=== PATIENT | female | born 1950 | race African-American/Black ===

== ENCOUNTER 2017-10-04 07:01 | Day surgery (SDC) | payer MEDICARE, MEDICAID ==
--- NOTE | 2017-10-01 19:45 | Pre-op HX & Phy Repo 2 SIG ---
DATE OF ADMISSION: 10/04/2017 DATE OF SURGERY: 10/04/2017 PREOPERATIVE DIAGNOSIS: Macular traction with proliferative diabetic retinopathy, right eye. 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 She was admitted for vitrectomy. PAST OCULAR HISTORY: Remarkable for cataract surgery in both eyes in the past. She has had two prior vitrectomies in the left eye with success. The right eye has developed progressive traction necessitating a vitrectomy on that side. MEDICAL HISTORY: Remarkable for diabetes, high blood pressure, arthritis, cerebral palsy, and a prior stroke. She has a history of glaucoma as well as diabetic retinopathy and prior cataracts. ALLERGIES: She has no allergies to medications. CURRENT MEDICATIONS: Include metformin, clopidogrel, captopril, atorvastatin, amlodipine, Victoza, and NovoLog. PHYSICAL EXAMINATION: Best vision at the time of admission was 20/100 +2 on the right eye and 20/200 in the left with pressures of 11 and 12. The anterior segment on the right showed posterior chamber lens reasonably well positioned. The left showed an anterior chamber lens with inferior iridotomy. Fundus examination of the right eye showed a significant preretinal fibrosis with elevation and significant edema in the macula. She was well lasered in the periphery. The left fundus showed diabetic maculopathy. There was diffuse edema and a mild area of preretinal fibrosis, but overall the macula itself was flat with central fovea attached. Extensive laser was seen in the periphery. General physical examination was completed by Dr. Tapia. ASSESSMENT: Proliferative diabetic retinopathy with progressive vitreomacular traction, centrally, right eye. PLAN: The plan is to perform a pars plana vitrectomy with release of the traction, endolaser and a possible gas-fluid exchange. The risks and benefits of surgery were gone over with the patient and her family including the potential for infection, retinal detachment, hemorrhage, and remote possibility of loss of the eye. The risk of anesthesia was discussed. The patient and family understand and consents to surgery, which will be performed on Wednesday. Curtis Fragoso M.D. DR: Rubi JOB#: [id number] CC:
[~2017-10-04] VITALS: Ht 162.6 cm; Wt 108.9 kg
[2017-10-04] VITALS (11 sets, daily range): BP systolic 101–148; BP diastolic 54–81
[~2017-10-04 07:01] MED LIST: AMLODIPINE BESY10 MG ORAL; ASPIR 8181 MG ORAL; ATORVASTATIN CA20 MG ORAL; CAPTOPRIL PO; PLAVIX75 MG ORAL; Pred Forte 1% Opth Susp 1ml RIGHT EYE SCH; RENA-VITE RX T1 EAC1 PO; TOUJEO SOL300 UNIT/1 SQ; [UNRECOGNIZED DRUG - OTHER] PO; [UNRECOGNIZED DRUG - OTHER] PO
--- NOTE | 2017-10-04 07:16 | Pre-Procedure Note/Attestation ---
Pre-Procedure Note/Attestation Complete Prior to Procedure Planned Procedure: right Procedure Narrative: PPV, membrane peel, endolaser, gas-fluid exchange Right eye. Indications for Procedure Pre-Operative Diagnosis: Progressive blurring Right eye Attestation I attest that I discussed the nature of the procedure; its benefits; risks and complications; and alternatives (and the risks and benefits of such alternatives ), prior to the procedure, with the patient (or the patient's legal marketing development representative). I attest that, if there was a reasonable possibility of needing a blood transfusion, the patient (or the patient's legal marketing development representative) was given the [facility] standardized written summary, pursuant to the [place] Blood Safety Act ([place] Health and Safety Code # 1645, as amended). I attest that I re-evaluated the patient just prior to the surgery and that there has been no change in the patient's H&P, except as documented below: ADELIA CRISTOBAL Oct 04, 2017 07:16
[2017-10-04] MEDS: Cyclopentolate 1% Opth Sol 2ml RIGHT EYE SCH ×3 (07:39→08:01)
[2017-10-04] MEDS: Flurbiprofen 0.03% Opth Sol 2.5ml RIGHT EYE SCH ×3 (07:39→08:01)
[2017-10-04] MEDS: Phenylephrine 2.5% Op 2ml Soln RIGHT EYE SCH ×3 (07:39→08:01)
[2017-10-04] MEDS: Vigamox Opth Soln 3ml RIGHT EYE SCH ×3 (07:39→08:01)
[2017-10-04] MEDS ORDERED: EPINEPHrine 1mg/1ml Amp ONE (07:58)
[2017-10-04] MEDS ORDERED: Povidone-Iodine 5% opth solution ONE (07:58)
[2017-10-04] MEDS ORDERED: BSS 500ml btl ONE (07:58)
[2017-10-04] MEDS ORDERED: BSS 15ml BTL ONE (07:58)
[2017-10-04] MEDS ORDERED: Lidocaine 2% MPF 5ml Vial INJ ONE (08:17)
[2017-10-04] MEDS ORDERED: Propofol 200mg/20ml IV ONE (08:58)
[2017-10-04] MEDS ORDERED: NS Irrig 1000ml ONE (09:00)
[2017-10-04] MEDS ORDERED: LR 1000ml ONE (09:00)
[2017-10-04] MEDS ORDERED: Sterile Water Irrig 1000ml IRRIG ONE (09:00)
[2017-10-04] MEDS ORDERED: ePHEDrine 50mg/ml Inj ONE (09:00)
[2017-10-04] MEDS ORDERED: Midazolam 2mg/2ml Inj ONE (09:00)
[2017-10-04] MEDS ORDERED: Maxitrol Opth Oint 3.5gm ONE (09:08)
[2017-10-04] MEDS ORDERED: Dexamethasone 4mg/ml vial ONE (09:08)
[2017-10-04] MEDS ORDERED: Pred Forte 1% Opth Susp 1ml ONE (09:08)
[2017-10-04] MEDS ORDERED: Tetracaine 0.5% Opth 4ml Soln ONE (09:09)
[2017-10-04] MEDS ORDERED: LR 1000ml 1,000 ML IVLG SCH (09:33)
--- NOTE | 2017-10-04 09:38 | Anethesia Preoperative Eval ---
Anesthesia Pre-op PMH/ROS General Date of Evaluation: Oct 04, 2017 Time of Evaluation: 08:55 Anesthesiologist: Elton ASA Score: ASA 3 Mallampati Score Class I : Soft palate, uvula, fauces, pillars visible Class II: Soft palate, uvula, fauces visible Class III: Soft palate, base of uvula visible Class IV: Only hard plate visible Mallampati Classification: Class III Surgeon: Richmond Diagnosis: Diabetic retinopathy right eye Surgical Procedure: Vitrectomy, membrane peel Family History: no anesthesia problems Allergies: Coded Allergies: CORN (Verified Allergy, Severe, 10/01/17) DIARRHEA Uncoded Allergies: BEANS (Allergy, Severe, 10/01/17) DIARRHEA Medications: see eMAR Past Medical History Cardiovascular: Reports: HTN; Denies: CAD, LA, valve dz, arrhythmia, other Pulmonary: Denies: asthma, COPD, ZAKIA, other Gastrointestinal/Genitourinary: Denies: GERD, CRI, ESRD, other Neurologic/Psychiatric: Reports: CVA, other - Cerebral palsy Endocrine: Reports: DM; Denies: hypothyroidism, steroids, other HEENT: Denies: cataract (L), cataract (R), glaucoma, [place] (L), [place] (R), other Hematology/Immune: Denies: anemia, DVT, bleeding disorder, other Other: obesity PMH Narrative: HTN, DM, CVA with right sided residual, Cerebral Palsy Anesthesia Pre-op Phys. Exam Physician Exam Last Vital Signs Date Time Temp Pulse Resp B/P (MAP) Pulse Ox O2 Delivery O2 Flow Rate FiO2 10/04/17 07:45 Room Air 10/04/17 07:42 97.5 79 18 136/69 (91) 98 97.5 Constitutional: NAD Neurologic: CN 2-12 intact, other - Patient with limited communication ability Cardiovascular: RRR, no M/R/G Respiratory: CTA Gastrointestinal: S/NT/ND Airway Exam Mallampati Score: Class III MO: full ROM: full Teeth: missing Anesthesia Pre-op A/P Labs WNL Studies Pre-op Studies: EKG - SR Risk Assessment & Plan Assessment: Class 3 patient for vitrectomy right eye Plan: GA, LMA Status Change Before Surgery: No Pre-Antibiotics Drug: None Hermes Conde MD Oct 04, 2017 09:38
--- NOTE | 2017-10-04 09:39 | Immediate Post-Op Evaluation ---
Immediate Post-Op Evalulation Immediate Post-Op Evalulation Procedure: Vitrectomy, membrane peel right eye Date of Evaluation: Oct 04, 2017 Time of Evaluation: 10:45 IV Fluids: 600 Blood Pressure Systolic: 140 Blood Pressure Diastolic: 81 Pulse Rate: 94 Respiratory Rate: 13 O2 Sat by Pulse Oximetry: 97 Temperature (Fahrenheit): 97.9 Pain Score (1-10): 0 Nausea: No Vomiting: No Complications No complication Patient Status: reacts, patent, none Hydration Status: adequate Drug: None Hermes Conde MD Oct 04, 2017 09:39
[2017-10-04] MEDS ORDERED: fentaNYL 100 mcg/2 mL IV PRN (09:45)
--- NOTE | 2017-10-04 10:37 | Brief Operative Note ---
Immediate Post Operative Note Operative Note Chief Complaint: Progressive blurring Right eye Pre-op Diagnosis: Traction retinal detachmene OD with VMT Procedure: PPV, Membrane peel, Endolaser 1213 spots, air-fluid exchange Right eye Post-op Diagnosis: same as pre-op Surgeon: nuria Anesthesiologist: Naheed Anesthesia: general Specimen: none Complications: none Condition: stable Fluids: Per anesthesia Estimated Blood Loss: none Drains: none Implant(s) used?: No ADELIA CRISTOBAL Oct 04, 2017 10:37
[2017-10-04] MEDS ORDERED: Kenalog-10 5ml Inj ONE (10:41)
[2017-10-04] MEDS ORDERED: Sodium Hyaluronate 10 mg/ml 0.85ml ONE (10:41)
--- NOTE | 2017-10-04 10:42 | 48 Hour Post Anesthesia Eval ---
Post Anesthesia Evaluation Procedure: Vitrectomy, membrane peel right eye Date of Evaluation: Oct 04, 2017 Time of Evaluation: 11:15 Blood Pressure Systolic: 148 0: 80 Pulse Rate: 90 Respiratory Rate: 12 O2 Sat by Pulse Oximetry: 97 Airway: patent Nausea: No Vomiting: No Pain Intensity: 0 Hydration Status: adequate Cardiopulmonary Status: Stable Mental Status/LOC: patient returned to baseline Follow-up Care/Observations: As per surgery Post-Anesthesia Complications: No anesthetic complication Follow-up care needed: N/A Hermes Conde MD Oct 04, 2017 10:42
[2017-10-04] MEDS ORDERED: Bupivacaine 0.75% 30ml vial INJ ONE (10:45)
[2017-10-04] MEDS ORDERED: Norco 5mg/325mg tab ORAL PRN (16:01)
--- NOTE | 2017-10-04 17:00 | Operative Note - Dictated ---
DATE OF OPERATION: 10/04/2017 PREOPERATIVE DIAGNOSIS: Traction retinal detachment with vitreal macular traction, right eye. POSTOPERATIVE DIAGNOSIS: Traction retinal detachment with vitreal macular traction, right eye. PROCEDURES: 1. Pars plana vitrectomy. 2. Membrane peel. 3. Endolaser. 4. Air-fluid exchange, right eye. SURGEON: Curtis Fragoso M.D. COMPOSING ROOM MACHINIST: None. ANESTHESIOLOGIST: RICH general, Dr. Conde. JUSTIFICATION FOR SURGERY: This 67-year-old lady with a long history of diabetes, developed a progressive traction detachment of the macula over the last year. She was admitted for vitrectomy and release. BRIEF NOTE: The patient was brought to the operative room, placed on operating room table in supine position. After a time-out was performed and agreed upon by the staff, general LMA anesthesia was induced by Dr. Conde. Retrobulbar and [place] blocks were then given in the standard way to limit the need for intraoperative anesthetic and to reduce postoperative pain. The patient was then prepped and draped in normal manner. A lid speculum inserted into the right eye. Using a 23-gauge trocar system, cannulas were placed in all except infranasal quadrant. Infusion secured inferotemporally. Vitrectomy was begun posterior to the lens implant. A central core vitrectomy was done followed by peripheral vitrectomy leaving a small vitreous skirt. A very taut and thickened subhyaloid membrane was engaged and gently severed from the areas of adhesion using the vitreous cutter. Once the optic nerve was isolated by removal of traction, ILM forceps were used to engage the membrane over the nerve, this gently peeled freely from the macula and remaining of the posterior pole. The vitreous cutter was then used to remove remaining remnants. Kenalog was used to aid in visualization of the vitreous in the posterior hyaloid. Once the hyaloid had been removed and all areas of traction relaxed, the Endolaser was brought to the eye and a power of 0.3 soriano, duration 0.2 seconds, a total of 1213 lesions were applied surrounding the areas of previous traction and treating likely lasered areas in the periphery. This went without difficulty. Scleral depression showed no peripheral breaks, tears, or detachments. A 100% air-fluid exchange was performed. The superior cannulas were removed and the sclerotomy was continued with the vitreous cutter. An 8-0 Vicryl suture was used to close, the infusion cannula was similarly removed and after cleaning the sclerotomy 8-0 Vicryl was used to close this wound as well. Subconjunctival Decadron and gentamicin were then injected and Maxitrol and atropine ointments were instilled. Topical prednisolone and moxifloxacin drops were also placed. The eye was then patched and shielded and the patient taken to recovery after smooth extubation without complication. She is to be placed in a face-down position for 45 minutes right side down position overnight. Curtis Fragoso M.D. DR: BRIAN JOB#: [id number] CC: Curtis Fragoso M.D.; Fax#: [phone]
== END 2017-10-04 13:00 | disposition home or self-care (01) ==
LOC: SUR 07:01
DX: E11.3521 Type 2 diabetes mellitus with proliferative diabetic retinopathy with traction retinal detachment involving the macula, right eye (principal); Z79.84 Long term (current) use of oral hypoglycemic drugs; H40.9 Unspecified glaucoma; I10 Essential (primary) hypertension; M19.90 Unspecified osteoarthritis, unspecified site; E78.5 Hyperlipidemia, unspecified; G80.9 Cerebral palsy, unspecified; E66.9 Obesity, unspecified; G47.30 Sleep apnea, unspecified; I69.351 Hemiplegia and hemiparesis following cerebral infarction affecting right dominant side; Z91.018 Allergy to other foods
CPT/HCPCS: 67042; 82962; J0171; J1100; J2250; J2405; J2704; J3301; J3470; J3490; J7120; 94003; 94150

== ENCOUNTER 2017-12-01 05:38 | Day surgery (SDC) | payer MEDICARE, MEDICAID ==
--- NOTE | 2017-11-30 19:45 | Pre-op HX & Phy Repo 2 SIG ---
DATE OF ADMISSION: 12/01/2017 DATE OF SURGERY: 12/01/2017 PREOPERATIVE DIAGNOSIS: Vitreomacular traction syndrome with diabetic retinopathy, left eye. BRIEF NOTE: This is one of several [place] admissions for the patient who is very 67-year-old lady with long history of proliferative diabetic retinopathy. She underwent vitrectomy surgery in the left eye in 2010 and again in 2009 for recurrent vitreous hemorrhage. She has had cataract surgery in both eyes. She underwent a vitrectomy in the right eye two months ago for severe proliferative retinopathy with traction and has done well. She has developed progressive vitreomacular traction in the left eye with what appears to be an impending macular hole and is admitted for vitrectomy on that side. PAST MEDICAL HISTORY: Remarkable for glaucoma, arthritis, diabetes, high blood pressure, cerebral palsy, and a previous stroke. CURRENT MEDICATIONS: Include Victoza, amlodipine, NovoLog, atorvastatin, metformin, and clopidogrel. ALLERGIES: She has no allergies. SOCIAL HISTORY: She does not smoke or drink. PHYSICAL EXAMINATION: Best vision time of admission was 20/200 in the right eye and 20/200 in the left with pressures of 12. The anterior segment on the right eye shows a posterior chamber lens well positioned. The left shows some degree of IOL capture in the anterior chamber lens reasonably well centered. Funduscopic exam of the right eye showed extensive peripheral laser. The macula was flat status post previous vitrectomy. The left eye showed significant vitreomacular traction with distortion and elevation of the central fovea. There was extensive peripheral laser related to her diabetic retinopathy. ASSESSMENT: Significant vitreomacular traction syndrome with diabetic retinopathy, left eye. PLAN: The plan is to perform a pars plana vitrectomy with membrane dissection and possible air or gas injection on the left as well as in the laser. The risks and benefits of surgery gone over the patient and her family including the potential for infection, hemorrhage, glaucoma, the possibility of loss of the eye. The risk of anesthesia was also discussed. The patient understands and consents to surgery to be performed on tomorrow morning. Curtis Fragoso M.D. DR: Rubi JOB#: [id number] CC:
[~2017-12-01] VITALS: Ht 162.6 cm; Wt 104.3 kg
[2017-12-01] VITALS (10 sets, daily range): BP systolic 124–142; BP diastolic 49–88
[~2017-12-01 05:38] MED LIST changes: +FISH OIL 1,2001 EAC2 PO; +GINKGO BILOBA120 M1 PO; -Pred Forte 1% Opth Susp 1ml RIGHT EYE SCH
[2017-12-01] MEDS ORDERED: Pred Forte 1% Opth Susp 1ml LEFT EYE SCH (06:00)
[2017-12-01] MEDS: Flurbiprofen 0.03% Opth Sol 2.5ml LEFT EYE SCH ×3 (06:50→07:22)
[2017-12-01] MEDS: Cyclopentolate 1% Opth Sol 2ml LEFT EYE SCH ×3 (06:50→07:21)
[2017-12-01] MEDS: Vigamox Opth Soln 3ml LEFT EYE SCH ×3 (06:50→07:22)
[2017-12-01] MEDS: Phenylephrine 2.5% Op 2ml Soln LEFT EYE SCH ×3 (06:50→07:22)
[2017-12-01] MEDS ORDERED: Lidocaine 2% MPF 5ml Vial INJ ONE (07:05)
[2017-12-01] MEDS ORDERED: EPINEPHrine 1mg/1ml Amp ONE (07:05)
[2017-12-01] MEDS ORDERED: Kenalog-40 1ml Vial ONE (07:05)
[2017-12-01] MEDS ORDERED: Dexamethasone 4mg/ml vial ONE (07:06)
[2017-12-01] MEDS ORDERED: Kenalog-10 5ml Inj ONE (07:06)
[2017-12-01] MEDS ORDERED: BSS 500ml btl ONE (07:06)
[2017-12-01] MEDS ORDERED: Pred Forte 1% Opth Susp 1ml ONE (07:06)
[2017-12-01] MEDS ORDERED: Maxitrol Opth Oint 3.5gm ONE (07:06)
[2017-12-01] MEDS ORDERED: Tetracaine 0.5% Opth 4ml Soln ONE (07:07)
[2017-12-01] MEDS ORDERED: Bupivacaine 0.75% 30ml vial INJ ONE (07:07)
[2017-12-01] MEDS ORDERED: BSS 15ml BTL ONE (07:07)
[2017-12-01] MEDS ORDERED: Povidone-Iodine 5% opth solution ONE (07:07)
[2017-12-01] MEDS ORDERED: Sodium Hyaluronate 10 mg/ml 0.85ml ONE (07:07)
[2017-12-01] MEDS ORDERED: Midazolam 2mg/2ml Inj ONE (07:28)
[2017-12-01] MEDS ORDERED: fentaNYL 100 mcg/2 mL IV ONE (07:28)
[2017-12-01] MEDS ORDERED: Propofol 200mg/20ml IV ONE (07:29)
[2017-12-01] MEDS ORDERED: Sterile Water Irrig 1000ml IRRIG ONE (07:30)
[2017-12-01] MEDS ORDERED: LR 1000ml ONE (07:30)
[2017-12-01] MEDS ORDERED: NS Irrig 1000ml ONE (07:30)
[2017-12-01] MEDS ORDERED: Metoclopramide 10mg/2ml Inj ONE (07:30)
--- NOTE | 2017-12-01 07:36 | Pre-Procedure Note/Attestation ---
Pre-Procedure Note/Attestation Complete Prior to Procedure Planned Procedure: left Procedure Narrative: PPV, kenalog injection, membrane peel, endolaser Left eye Indications for Procedure Pre-Operative Diagnosis: Vitreomacular traction syndrome left eye, diabetic retinopathy Attestation I attest that I discussed the nature of the procedure; its benefits; risks and complications; and alternatives (and the risks and benefits of such alternatives ), prior to the procedure, with the patient (or the patient's legal customer service representative teacher). I attest that, if there was a reasonable possibility of needing a blood transfusion, the patient (or the patient's legal customer service representative teacher) was given the [facility] standardized written summary, pursuant to the [place] Blood Safety Act ([place] Health and Safety Code # 1645, as amended). I attest that I re-evaluated the patient just prior to the surgery and that there has been no change in the patient's H&P, except as documented below: ADELIA CRISTOBAL Dec 01, 2017 07:35
[2017-12-01] MEDS ORDERED: Norco 5mg/325mg tab ORAL PRN (07:45)
--- NOTE | 2017-12-01 08:26 | Anethesia Preoperative Eval ---
Anesthesia Pre-op PMH/ROS General Date of Evaluation: Dec 01, 2017 Time of Evaluation: 07:20 Anesthesiologist: Maddison ASA Score: ASA 3 Mallampati Score Class I : Soft palate, uvula, fauces, pillars visible Class II: Soft palate, uvula, fauces visible Class III: Soft palate, base of uvula visible Class IV: Only hard plate visible Mallampati Classification: Class III Surgeon: Richmond Diagnosis: diabetic retionopathy Left eye, vitreomacular traction syndrome Surgical Procedure: posterior vitrectomy endolaser membrane peel Left eye Anesthesia History: none Family History: no anesthesia problems Allergies: Coded Allergies: CORN (Verified Allergy, Severe, 10/01/17) DIARRHEA Uncoded Allergies: BEANS (Allergy, Severe, 10/01/17) DIARRHEA Medications: see eMAR Patient NPO?: Yes NPO Date: Nov 30, 2017 NPO Time: 17:00 Past Medical History Cardiovascular: Reports: HTN Pulmonary: Reports: ZAKIA Gastrointestinal/Genitourinary: Denies: GERD, CRI, ESRD, other Neurologic/Psychiatric: Reports: CVA Endocrine: Reports: DM HEENT: Reports: cataract (L), cataract (R) - r eye vitrectomy , glaucoma Hematology/Immune: Denies: anemia, DVT, bleeding disorder, other Musculoskeletal/Integumentary: Reports: OA Other: obesity Anesthesia Pre-op Phys. Exam Physician Exam Last Vital Signs Date Time Temp Pulse Resp B/P (MAP) Pulse Ox O2 Delivery O2 Flow Rate FiO2 12/01/17 07:17 96.8 84 20 136/79 96 Room Air 96.8 Constitutional: NAD Neurologic: CN 2-12 intact Cardiovascular: RRR Respiratory: CTA Gastrointestinal: S/NT/ND Airway Exam Mallampati Score: Class III MO: full Neck: slightly limited ROM TMD: 4 fingerbreaths ROM: limited Teeth: intact, other - poor oral care/hygine Dentures: no upper, no lower Anesthesia Pre-op A/P Labs chart reviewed Accucheck 120 Studies Pre-op Studies: EKG - NSR 86 bpm Risk Assessment & Plan Assessment: A&Ox3, due to CVA hard to understand speech. Right sided weakness Plan: General with LMA Status Change Before Surgery: No Pre-Antibiotics Given Within 1 Hr of Incision: No Selene Washburn CRNA Dec 01, 2017 08:26
--- NOTE | 2017-12-01 08:35 | Immediate Post-Op Evaluation ---
Immediate Post-Op Evalulation Immediate Post-Op Evalulation Procedure: posterior vitrectomy endolaser membrane peel left eye Date of Evaluation: Dec 01, 2017 Time of Evaluation: 08:49 IV Fluids: LR 600ml Blood Products: 0 Estimated Blood Loss: minimal less than 5 ml Urinary Output: 0 Blood Pressure Systolic: 135 Blood Pressure Diastolic: 74 Pulse Rate: 86 Respiratory Rate: 18 O2 Sat by Pulse Oximetry: 100 Temperature (Fahrenheit): 97.2 Pain Score (1-10): 0 Nausea: No Vomiting: No Complications none Patient Status: awake, reacts, patent Hydration Status: adequate Drug: none per surgeon Given Within 1 Hr of Incision: No Selene Washburn CRNA Dec 01, 2017 08:35
--- NOTE | 2017-12-01 08:35 | 48 Hour Post Anesthesia Eval ---
Post Anesthesia Evaluation Procedure: posterior vitrectomy endolaser membrane peel left eye Date of Evaluation: Dec 01, 2017 Time of Evaluation: 10:38 Blood Pressure Systolic: 126 0: 69 Pulse Rate: 72 Respiratory Rate: 18 Temperature (Fahrenheit): 97.2 O2 Sat by Pulse Oximetry: 100 Airway: patent Nausea: No Vomiting: No Pain Intensity: 0 Hydration Status: adequate Cardiopulmonary Status: WNL Mental Status/LOC: patient returned to baseline Follow-up care needed: patient intructions given Selene Washburn CRNA Dec 01, 2017 08:35
--- NOTE | 2017-12-01 09:00 | Brief Operative Note ---
Immediate Post Operative Note Operative Note Chief Complaint: Blurring and distortion Left eye Pre-op Diagnosis: Vitreomacular traction syndrome left eye, diabetic retinopathy Procedure: PPV, kenalog injection, membrane peel, endolaser 395spots, air-fluid exchange Left eye Post-op Diagnosis: same as pre-op Surgeon: nuria Anesthesiologist: Selene Washburn CRNA Anesthesia: general Specimen: none Complications: none Condition: stable Fluids: Per anesthesia Estimated Blood Loss: none Drains: none Implant(s) used?: No ADELIA CRISTOBAL Dec 01, 2017 09:00
--- NOTE | 2017-12-01 16:00 | Pre-op HX & Phy Repo 2 SIG ---
DATE OF ADMISSION: 12/01/2017 PRESURGICAL INTERNAL MEDICINE HISTORY AND PHYSICAL REASON FOR EVALUATION: I was asked by Dr. Curtis Fragoso, to see this 67-year-old female, who going for elective surgery on the left eye. The patient was examined. Chart was reviewed at [place] [facility] [facility]. The patient is a 67-year-old female, going for elective surgery of the left eye. The patient has a proliferative diabetic retinopathy, extraction of left eye. PAST MEDICAL HISTORY AND REVIEW OF SYSTEMS: Remarkable for history of insulin-dependent diabetes mellitus, hypertension, history of stroke, major stroke in 1993, paralysed, hemiplegia. The patient has a TIA , history of hernia, obesity with BMI of 39.5 kg per square meter. No history of respiratory problem, asthma or bronchitis. No history of heart attack. No thyroid problem. Denies history of renal insufficiency. SURGICAL HISTORY: Total hysterectomy and multiple eye surgeries. FAMILY HISTORY: Mother has diabetes and father heart attack. ALLERGIES: [place] and beans. PRESENT MEDICATIONS: Include insulin 27 units daily, captopril, amlodipine, baby aspirin, Plavix, fish oil, , vitamin B complex. . HABITS: Denies history of smoke or alcohol habits. No street drugs. PHYSICAL EXAMINATION: GENERAL: Well-developed, well-nourished, overweight female, acute distress. VITAL SIGNS: Blood pressure , temperature 96.8, pulse 84, respirations 20, O2 saturation 96%. The patient is 5 feet 4 inches tall and weighed 234 pounds. SKIN: Warm and dry. No rashes. No ulcer. LYMPH NODES: Not enlarged. HEENT: Head, normocephalic. Ears, clear. No discharge. Eye, full description per Dr. Curtis Fragoso. Mouth, clear and moist. No dentures. Absence of some teeth. NECK: Supple. No jugular vein distention. Carotids artery +2. Trachea midline. CHEST: No deformity or asymmetry. LUNGS: Clear to auscultation and percussion. No rales or rhonchi. HEART: Sinus rhythm. No ectopy. No murmur. No S3, S4. ABDOMEN: Soft, obese. Liver spleen was not enlarged. No masses or rebound. EXTREMITIES: No peripheral edema GENITOURINARY TRACT: CVA nontender. NERVOUS SYSTEM: Post CVA and right hemiplegia, no tremors. LABORATORY AND DIAGNOSTIC DATA: Blood sugar 120 mg/dL. Electrocardiogram, normal sinus rhythm, low-voltage QRS. The patient did not eat or drink from 5:00 p.m. yesterday. IMPRESSION: 1. Peripheral diabetic retinopathy, left eye with extraction. 2. Insulin-dependent diabetes mellitus. 3. History of CVA with right hemiplegia and history of transient ischemic attack. 4. Obesity, BMI of 39.5. 5. Chronic renal disease. PLAN: Pars plana vitrectomy, membrane peel, and endolaser 23G left eye per Dr. Curtis Fragoso. CONCLUSION: The patient is a 67-year-old female with multiple problems including hypertension, history of stroke and history of insulin-dependent diabetes. The patient's vital signs stable. ECG low voltage of QRS, sinus rhythm. The patient did not eat or drink from yesterday 5:00 p.m. The patient's condition optimized for surgery. Thank you very much, Dr. Fragoso, for privilege to participate in the presurgical care of this interesting patient. Lazaro Carrera M.D. DR: YOON JOB#: [id number] CC:
--- NOTE | 2017-12-01 20:30 | Operative Note - Dictated ---
DATE OF OPERATION: 12/01/2017 PREOPERATIVE DIAGNOSIS: Vitreomacular traction syndrome with diabetic retinopathy, left eye. POSTOPERATIVE DIAGNOSIS: Vitreomacular traction syndrome with diabetic retinopathy, left eye. PROCEDURES: 1. Pars plana vitrectomy. 2. Kenalog injection. 3. Membrane peel. 4. Endolaser. 5. Air-fluid exchange, left eye. SURGEON: Curtis Fragoso M.D. RADIO STATION AUDIO ENGINEER: None. ANESTHESIA: LMA general. JUSTIFICATION FOR SURGERY: This 67-year-old lady with longstanding diabetic retinopathy and had a previous vitrectomy. She developed a vitreomacular traction syndrome with elevation of the macula and an impending hole . She was admitted for vitrectomy. BRIEF NOTE: The patient was brought to the operative room, placed on OR table in supine position. After time-out was performed and agreed upon by the staff, general LMA anesthesia was induced by the anesthesiologist. The retrobulbar and Van Lint blocks were then given in the standard way to limit intraoperative anesthetic and postoperative pain. The patient was then prepped and draped in normal manner. A lid speculum was inserted into the left eye. Using a 23-gauge trocar system, cannulas were placed in all except infranasal quadrant. Infusion was secured inferotemporally. Vitrectomy was begun posterior to the lens implant. A previous vitrectomy was done so only a limited peripheral vitrectomy was performed leaving a very small vitreous skirt. A posterior-viewing lens was inserted after dusting of the posterior hyaloid with Kenalog. The hyaloid was seen to be attached adjacent to the central macula. The membrane was grasped with ILM forceps and gently elevated and removed. A Ottnoiel mixer wet pour was used in this maneuver. An area roughly 4 disc diameters in size was cleared posteriorly. There was no macular hole present. Scleral depression was done. No peripheral breaks, tears, or detachments were seen, but a previous area of preretinal fibrosis supranasally was noted. Endolaser was brought into the eye and at power of 0.3 soriano, duration of 0.2 seconds, laser spots were applied to surround this previously fibrosed area and also in areas of lightly treated retina periphery. No problems were encountered. A total of 395 lesions were applied. An air-fluid exchange was then performed to roughly 95% fill. The eye was left normotensive and the superior cannulas were removed. An 8-0 Vicryl was used to close each of the sclerotomies and the knot was buried. The infusion cannula was removed and this wound was noted to be self-sealing without air leakage. The pressure was rebalanced using a 30-gauge needle on a 3 mL syringe of air and the eye was left in normal configuration and tension. Subconjunctival Decadron and gentamicin were then injected inferiorly and Maxitrol and atropine ointments were instilled. The eye was patched and shielded. The patient was taken to recovery in excellent condition. There were no complications. Curtis Fragoso M.D. DR: Rory JOB#: [id number] CC: Curtis Fragoso M.D.; Fax#: [phone]
== END 2017-12-01 10:25 | disposition home or self-care (01) ==
LOC: SUR 05:38
DX: E11.3532 Type 2 diabetes mellitus with proliferative diabetic retinopathy with traction retinal detachment not involving the macula, left eye (principal); Z79.4 Long term (current) use of insulin; E11.22 Type 2 diabetes mellitus with diabetic chronic kidney disease; I12.9 Hypertensive chronic kidney disease with stage 1 through stage 4 chronic kidney disease, or unspecified chronic kidney disease; N18.9 Chronic kidney disease, unspecified; H40.9 Unspecified glaucoma; M19.90 Unspecified osteoarthritis, unspecified site; G80.9 Cerebral palsy, unspecified; I69.351 Hemiplegia and hemiparesis following cerebral infarction affecting right dominant side; E66.9 Obesity, unspecified; Z68.39 Body mass index [BMI] 39.0-39.9, adult; G47.33 Obstructive sleep apnea (adult) (pediatric); Z79.82 Long term (current) use of aspirin; Z91.018 Allergy to other foods; Z90.710 Acquired absence of both cervix and uterus
CPT/HCPCS: 67042; 82962; J0171; J1100; J2250; J2405; J2704; J2765; J3010; J3301; J3470; J3490; 94003; 94150